=== PATIENT | male | born 2000 | race Two or more races ===

== ENCOUNTER 2021-04-02 15:30 | Emergency (ER) | payer SELFPAY ==
[2021-04-02 15:32] VITALS: BP 119/64; PULSE 67; RESP 18; TEMP 36.8; O2SAT 100; BMI 22.6
--- NOTE | 2021-04-02 15:53 | [facility].EDGENADL ---
ED Disposition Condition on Discharge: Good - Critical Care Critical Care Time: No <Pedro Bourne - Last Filed: 04/02/21 21:05> <Alicja Wick - Last Filed: 04/03/21 05:51> Clinical Impression: Chest wall pain, Fall Disposition: Home, Self-Care Additional Instructions: Return if you have any abdominal pain, lightheadedness, passing out, or other concerns. Referrals: Provider,Olga, [Primary Care Provider] - Chico Durán MD [Staff Physician] - Attestation: On 04/02/21, the high probability of a clinically significant, sudden or life threatening deterioration of the following system(s) required my full and direct attention, intervention and personal management. The time I documented below is in addition to time spent performing reported procedures but includes the following listed in this critical care notation. Medical Decision Making - Rd Inquiry Pt receiving controlled substance: No - Lab Data Result diagrams: 04/02/21 16:19 04/02/21 16:19 - CT Data CT Scan: Head, C-Spine, Abdomen, Pelvis, Chest, T-Spine, L-Spine Time Received: 18:[address] Reviewed: Yes: I have viewed the radiologist's interpretation - Physician Consults Physician Consulted: Trauma surgery and transfer physician at [facility] Time: 18:10 Reason -: Transfer to another facilty Comment/Response: Since patient does not require intervention, they are unable to accept as a transfer. They recommend observation for 24 to 48 hours post injury. Recommend serial exams and repeat CBC. They do not recommend repeat scanning. Additional Consult: [place] Time: 18:30 Reason -: Surgical Eval/Care Comment/Response: Declines to admit the patient here for surgical observation. <ForrestulicesPedro - Last Filed: 04/02/21 21:05> - Lab Data Result diagrams: 04/03/21 05:29 04/02/21 16:19 <Alicja Wick - Last Filed: 04/03/21 05:51> Vital Signs: 04/02/21 15:32 04/02/21 16:00 04/02/21 16:30 Temperature 98.3 F Temperature Source Oral Pulse Rate 62 62 Pulse Rate [Left Radial] 67 Respiratory Rate 18 18 20 Blood Pressure 120/70 126/66 Blood Pressure [Right Arm] 119/64 Blood Pressure Mean 87 83 Blood Pressure Mean [Right Arm] 82 Blood Pressure Source [Right Arm] Automatic Cuff Blood Pressure Position [Right Arm] Sitting 02 Sat by Pulse Oximetry 100 100 99 Oxygen Delivery Method Room Air - Lab Data Lab Results 04/02/21 16:19: WBC 8.1, RBC 5.26, Hgb 15.6, Hct 48.0, MCV 91.2, MCH 29.7, MCHC 32.5, RDW 13.5, Plt Count 250, MPV 8.3, Neut % (Auto) 72.3, Lymph % (Auto) 21.3, [place] % (Auto) 3.5, Eos % (Auto) 2.1, Baso % (Auto) 0.7, Neut # (Auto) 5.8, Lymph # (Auto) 1.7, [place] # (Auto) 0.3, Eos # (Auto) 0.2, Baso # (Auto) 0.1 04/02/21 16:19: Sodium 142, Potassium 4.5, Chloride 105, Carbon Dioxide 27, Anion Gap 14.5, BUN 11, Creatinine 0.70, Estimated Creat Clear 160, Estimated GFR 144, Est GFR ( Amer) 174, Glucose 104 H, Calcium 9.5, Total Bilirubin 0.3, AST 35, ALT 26, Alkaline Phosphatase 87, Total Protein 8.0, Albumin 4.6, Globulin 3.4 H, Albumin/Globulin Ratio 1.4 04/03/21 05:29: WBC 5.8 D, RBC 4.87, Hgb 14.5, Hct 43.8, MCV 89.8, MCH 29.8, MCHC 33.2, RDW 13.3, Plt Count 233, MPV 7.8, Neut % (Auto) 66.3, Lymph % (Auto) 24.6, [place] % (Auto) 5.7, Eos % (Auto) 2.7, Baso % (Auto) 0.7, Neut # (Auto) 3.9, Lymph # (Auto) 1.4, [place] # (Auto) 0.3, Eos # (Auto) 0.2, Baso # (Auto) 0.0 Orders (Tests/Meds): ED MEDICATIONS Generic Name Dose Route Start Last Admin Trade Name Freq PRN Reason Stop Dose Admin Sodium Chloride 10 ml 04/02/21 17:08 04/02/21 17:09 Sodium Chloride 0.9% 10ml Syr (Rad Only) IV 05/02/21 17:07 10 ml NEEDED PRN Administration Maintain IV Site Discontinued Medications Generic Name Dose Route Start Last Admin Trade Name Freq PRN Reason Stop Dose Admin Iopamidol 70 ml 04/02/21 17:08 04/02/21 17:09 Iopamidol-370 (76%);100ml Bottle IV 04/02/21 17:09 70
--- NOTE | 2021-04-02 15:56 | CT_ITS ---
PROCEDURE INFORMATION: Exam: CT Abdomen And Pelvis With Contrast Exam date and time: 04/02/2021 3:56 PM Age: 20 years old Clinical indication: Injury or trauma; Fall; Blunt; Generalized; Patient HX: PT fell 12 feet; Additional info: Fall 12 ft TECHNIQUE: Imaging protocol: Computed tomography of the abdomen and pelvis with contrast. Radiation optimization: All CT scans at this facility use at least one of these dose optimization techniques: automated exposure control; mA and/or kV adjustment per patient size (includes targeted exams where dose is matched to clinical indication); or iterative reconstruction. Contrast material: ISOVUE; Contrast volume: 70 ml; Contrast route: IV; COMPARISON: CT LUMBAR SPINE WO CON 04/02/2021 4:44 PM FINDINGS: Lungs: No acute findings in the visualized lung bases. Liver: The liver is normal. Gallbladder and bile ducts: The gallbladder is unremarkable. No calcified stones or biliary dilatation. Pancreas: The pancreas is normal. Spleen: Some motion artifacts. No splenomegaly. Minimal lobulation of the posteroinferior tip of spleen with some streaky densities which are probably developmental lobulation and motion artifact, less likely would be a small laceration of approximately 1.3 cm depth; there is no surrounding hematoma. This would be a grade II injury. See series 5, image 29, coronal series 604, images 46-47, and sagittal series 605, images 6 Adrenal glands: The adrenal glands are normal. Kidneys and ureters: The kidneys are normal. The ureters are normal. Stomach and bowel: There is no evidence of intestinal perforation or obstruction. Appendix: No findings of appendicitis. Intraperitoneal space: There is a tiny amount of free fluid in the posterior lower pelvis, this is low-density fluid HU 14 series 5, image 92. 2-63. Vasculature: There is no aortic aneurysm. No active contrast extravasation/active arterial bleeding seen. Lymph nodes: No significantly enlarged lymph nodes by short axis criteria. Urinary bladder: The bladder is normal. Reproductive: The prostate and seminal vesicles are normal. Bones/joints: No acute fracture or dislocation. Soft tissues: There are no soft tissue masses or fluid collections. IMPRESSION: 1. Question 1.3 cm laceration at the posteroinferior spleen, versus developmental lobulation of the spleen and motion artifact. Correlate for the area of pain/trauma. This would be a grade II injury. 2. A very small amount of free fluid in the posterior lower pelvis, nonspecific. This is low-density, approximate 14 HU. 3. No active contrast extravasation/active arterial bleeding seen during the exam. 4. No other acute visceral injury. 5. No free air. 6. No acute fracture or dislocation.
--- NOTE | 2021-04-02 15:56 | CT_ITS ---
PROCEDURE INFORMATION: Exam: CT Cervical Spine Without Contrast Exam date and time: 04/02/2021 3:56 PM Age: 20 years old Clinical indication: Injury or trauma; Fall; Blunt trauma; Patient HX: PT fell 12 feet; Additional info: Fall 12 ft TECHNIQUE: Imaging protocol: Computed tomography images of the cervical spine without contrast. Radiation optimization: All CT scans at this facility use at least one of these dose optimization techniques: automated exposure control; mA and/or kV adjustment per patient size (includes targeted exams where dose is matched to clinical indication); or iterative reconstruction. COMPARISON: No comparison studies were made available at the time of interpretation. FINDINGS: Vertebrae: Normal bony alignment. No acute fracture detected on this study. No spinal canal stenosis and no neural foraminal narrowing detected on this study. Soft tissues: Unremarkable. Thyroid: Unremarkable CT appearance of the thyroid gland. Airways and lungs: The visualized airway is patent. The visualized lung apices are unremarkable. IMPRESSION: No acute fracture or malalignment of the cervical spine detected on this study.
--- NOTE | 2021-04-02 15:57 | CT_ITS ---
PROCEDURE INFORMATION: Exam: CT Thoracic Spine Without Contrast Exam date and time: 04/02/2021 3:57 PM Age: 20 years old Clinical indication: Injury or trauma; Fall; Blunt trauma (contusions or hematomas); Patient HX: PT fell 12 feet; Additional info: Fall 12 ft TECHNIQUE: Imaging protocol: Computed tomography images of the thoracic spine without contrast. Radiation optimization: All CT scans at this facility use at least one of these dose optimization techniques: automated exposure control; mA and/or kV adjustment per patient size (includes targeted exams where dose is matched to clinical indication); or iterative reconstruction. COMPARISON: CT CERVICAL SPINE WO CON 04/02/2021 4:34 PM FINDINGS: Vertebrae: There are slight anterior wedge compression deformities at T10, T11 and T12 levels which appear likely chronic. No acute appearing fracture or significant listhesis, as visualized.There are no lytic skeletal lesions seen. Discs/Spinal canal/Neural foramina: Multilevel degenerative disc disease and spondylosis prominent for age. Disc narrowing greatest T6-T7 through T11-T12 levels with multiple small Schmorl's nodes, and some vertebral endplate osteophytes. Vacuum phenomenon/gas bubbles noted in the disc spaces. No significant bony spinal or foraminal stenosis. No definite disc herniations, though soft tissue resolution is poor within the spinal canal. Soft tissues: No acute findings in the paraspinous soft tissues.There are no soft tissue masses or fluid collections. Lungs: No acute findings in the visualized lungs. Pleural spaces: No pleural effusion as visualized. IMPRESSION: 1. No acute appearing fracture or listhesis. 2. Prominent degenerative changes for age, appearance suggesting Scheuermann's disease. There are mild chronic appearing anterior wedge deformities at T10 through T12, multilevel disc disease, spondylosis, and Schmorl's nodes. 3. No significant spinal or foraminal stenosis. 4. Additional nonemergency and chronic findings as above.
--- NOTE | 2021-04-02 15:57 | CT_ITS ---
PROCEDURE INFORMATION: Exam: CT Lumbar Spine Without Contrast Exam date and time: 04/02/2021 3:57 PM Age: 20 years old Clinical indication: Injury or trauma; Fall; Blunt trauma (contusions or hematomas); Patient HX: Fell 12 feet; Additional info: Fall 12 ft TECHNIQUE: Imaging protocol: Computed tomography images of the lumbar spine without contrast. Radiation optimization: All CT scans at this facility use at least one of these dose optimization techniques: automated exposure control; mA and/or kV adjustment per patient size (includes targeted exams where dose is matched to clinical indication); or iterative reconstruction. COMPARISON: CT THORACIC SPINE WO CON 04/02/2021 4:38 PM FINDINGS: Vertebrae: There is a normal count of 5 [id number] lumbar type vertebrae. Lumbar vertebrae appear intact and normally aligned, no acute fracture or listhesis.There are no lytic skeletal lesions seen. Lower thoracic spine degenerative changes, please see the thoracic spine CT report. Discs/Spinal canal/Neural foramina: Disc spaces are well preserved. No significant spondylosis. No definite disc protrusion. No significant spinal or foraminal stenosis. No significant facet arthropathy. No spondylolysis. Soft tissues: No acute finding in the paraspinous soft tissues.There are no soft tissue masses or fluid collections. IMPRESSION: No acute findings.
--- NOTE | 2021-04-02 15:58 | CT_ITS ---
PROCEDURE INFORMATION: Exam: CTA Chest With Contrast Exam date and time: 04/02/2021 3:58 PM Age: 20 years old Clinical indication: Injury or trauma; Fall; Blunt trauma (contusions or hematomas); Patient HX: PT fell 12 feet; Additional info: Fall 12 ft TECHNIQUE: Imaging protocol: Computed tomographic angiography of the chest with contrast. 3D rendering (Not supervised by radiologist): MIP and/or 3D reconstructed images were created by the technologist. Radiation optimization: All CT scans at this facility use at least one of these dose optimization techniques: automated exposure control; mA and/or kV adjustment per patient size (includes targeted exams where dose is matched to clinical indication); or iterative reconstruction. Contrast material: ISOVUE 370; Contrast volume: 70 ml; Contrast route: INTRAVENOUS (IV); COMPARISON: CT THORACIC SPINE WO CON 04/02/2021 4:38 PM FINDINGS: Pulmonary arteries: No acute pulmonary emboli. Motion artifacts. Streak artifacts. Aorta: No thoracic aortic aneurysm or dissection in the chest. No aortic rupture. Lungs: No acute findings. There is no pulmonary consolidation. No masses. Pleural spaces: Unremarkable. No significant pleural effusion. No pneumothorax. Heart: The heart is not enlarged. No significant pericardial effusion. RV/LV ratio approximate 0.7, within normal limits. No reflux of contrast into the IVC and hepatic veins to suggest right heart strain. Mediastinal space: Minimal hazy soft tissue densities in the anterior superior mediastinum are probably slight thymic remnant tissue. Lymph nodes: No significantly enlarged lymph nodes by short axis criteria. Bones/joints: There is no evidence of acute fracture. No dislocation. Soft tissues: There are no soft tissue masses or fluid collections. IMPRESSION: 1. No acute cardiopulmonary findings. 2. No acute fracture or dislocation. 3. No thoracic aortic aneurysm or dissection. 4. Additional nonemergency and chronic findings as above.
[2021-04-02 16:00] VITALS: BP 120/70; PULSE 62; RESP 18; O2SAT 100
[2021-04-02 16:29] LABS: Basophils # 0.1 K/mm3 (0-0.2); Basophils % 0.7 % (0.1-2.0); Eosinophils # 0.2 K/mm3 (0.0-0.4); Eosinophils % 2.1 % (0.1-12.0); Hemoglobin 15.6 g/dL (14.1-18.0); Lymphocytes # 1.7 K/mm3 (0.7-4.5); Lymphocytes % 21.3 % (10-50); Mean Corpuscular HGB Conc 32.5 g/dL (31.8-35.4); Mean Corpuscular Hemoglobin 29.7 pg (27.0-31.2); Mean Corpuscular Volume 91.2 fl (80-94); Mean Platelet Volume 8.3 fl (7.4-10.4); Monocytes # 0.3 K/mm3 (0.1-1.0); Monocytes % 3.5 % (1.7-9.3); Neutrophils # 5.8 K/mm3 (1.8-7.8); Neutrophils % 72.3 % (37.0-80.0); Platelet Count 250 K/mm3 (142-424); Red Blood Count 5.26 M/mm3 (4.60-6.20); Red Cell Distribution Width 13.5 % (11.5-17.5); White Blood Count 8.1 K/mm3 (4.5-13.0)
[2021-04-02 16:30] VITALS: BP 126/66; PULSE 62; RESP 20; O2SAT 99
[2021-04-02 16:34] LABS: Chloride 105 mmol/L (98-107); Potassium 4.5 mmoL/L (3.5-5.1); Sodium 142 mmol/L (136-145)
[2021-04-02 16:37] LABS: Alanine Aminotransferase 26 U/L (12-78); Albumin Level 4.6 g/dl (3.5-5.0); Albumin/Globulin Ratio 1.4 (1.1-1.8); Alkaline Phosphatase 87 U/L (38-126); Anion Gap 14.5 mEq/L (5-15); Aspartate Amino Transferase 35 U/L (17-59); Bilirubin,Total 0.3 mg/dl (0.2-1.3); Blood Urea Nitrogen 11 mg/dl (9-20); Carbon Dioxide 27 mmol/L (22.0-30.0); Creatinine Clearance Estimated 160 mL/min (50-200); Estimated Glomerular Filt Rate 144 ml/min (>60); GFR (African American) 174 ML/MIN (>60); Globulin 3.4 g/dL (1.3-3.2)
[2021-04-02 16:38] LABS: Calcium 9.5 mg/dl (8.4-10.2); Glucose 104 mg/dl (74-100)
--- NOTE | 2021-04-02 18:16 | PC.NURSE ---
Dr Tayla deng with trauma.
--- NOTE | 2021-04-02 18:26 | PC.NURSE ---
speaking with Dr. Horner
--- NOTE | 2021-04-02 18:26 | PC.NURSE ---
spoke with who advised at this time he did not need intervention at this time but we should observe the patient for [address] Bourne decided to have Dr. Horner at this time.
--- NOTE | 2021-04-02 18:42 | PC.NURSE ---
Pt was informed via relaster that he has a possible spleen lac via the MD who explained the plan to observe in the ER for post injury bleeding of 48 hours and will need to have more blood work in the am to check his levels and to monitor his condition, Pt is agreeable with this, employer present while information given.. Employer number is [phone] if he needs to be reached and he states he will come to get the pt when he is ready to be DC in the am. Pt is moved to room 11 for a more suitable bed for the overnight stay and items are placed in reach with call burton for staff assistance when needed.
[2021-04-02 20:00] VITALS: BP 122/68; PULSE 67; RESP 20; TEMP 36.7; O2SAT 100
--- NOTE | 2021-04-02 21:35 | PC.NURSE ---
Pt asking for help to order of pizza, pt reminded he can not have anything to eat/drink at this time via drafting layout worker. Pt stated his understanding.
--- NOTE | 2021-04-02 23:30 | PC.NURSE ---
Obtaining VS, pt education given regarding the reason for clears only, Per Dr. Bourne. Pt asked is he is waiting for surgery. Pt educated on the possibility of transfer if his needs change. But at this time, they are stable although still watching him closely for signs of increased internal bleeding. Used equipment installation professional device without difficulty.
[2021-04-03] VITALS: BP 117/64; PULSE 64; RESP 19; TEMP 36.9; O2SAT 99
--- NOTE | 2021-04-03 02:17 | PC.NURSE ---
Pt ambulated to the bathroom, gave new bottle of water.
--- NOTE | 2021-04-03 03:00 | PC.NURSE ---
pt sleeping quietly, call light within reach.
[2021-04-03 04:30] VITALS: BP 110/59; PULSE 62; RESP 18; TEMP 36.7; O2SAT 100
[2021-04-03 05:39] LABS: Basophils % 0.7 % (0.1-2.0); Eosinophils # 0.2 K/mm3 (0.0-0.4); Eosinophils % 2.7 % (0.1-12.0); Hematocrit 43.8 % (42.0-52.0); Hemoglobin 14.5 g/dL (14.1-18.0); Lymphocytes # 1.4 K/mm3 (0.7-4.5); Lymphocytes % 24.6 % (10-50); Mean Corpuscular HGB Conc 33.2 g/dL (31.8-35.4); Mean Corpuscular Hemoglobin 29.8 pg (27.0-31.2); Mean Corpuscular Volume 89.8 fl (80-94); Mean Platelet Volume 7.8 fl (7.4-10.4); Monocytes # 0.3 K/mm3 (0.1-1.0); Monocytes % 5.7 % (1.7-9.3); Neutrophils # 3.9 K/mm3 (1.8-7.8); Neutrophils % 66.3 % (37.0-80.0); Platelet Count 233 K/mm3 (142-424); Red Blood Count 4.87 M/mm3 (4.60-6.20); Red Cell Distribution Width 13.3 % (11.5-17.5); White Blood Count 5.8 K/mm3 (4.5-13.0)
--- NOTE | 2021-04-03 05:48 | PC.NURSE ---
Dr. Wick s/w with pt via senior shipping clerk, reviewing am labs & d/c instructions.
[2021-04-03 06:08] VITALS: BP 112/68; PULSE 63; RESP 18; TEMP 36.8; O2SAT 99
--- NOTE | 2021-04-03 06:12 | PC.NURSE ---
removed pt's IV at this time, waiting on his ride- Dre Quintana to arrive.
== END 2021-04-03 07:25 | disposition home or self-care (01) ==
PROVIDERS: Emergency Provider Emergency Medicine
DX: S20.222A Contusion of left back wall of thorax, initial encounter (principal); S00.83XA Contusion of other part of head, initial encounter; S10.93XA Contusion of unspecified part of neck, initial encounter; W17.89XA Other fall from one level to another, initial encounter; Y92.71 Barn as the place of occurrence of the external cause
CPT/HCPCS: 70450; 71275; 72125; 72128; 72131; 74177; 80053; 85025; 96365; 99283; Q9967